=== PATIENT | female | born 1935 | race American Indian/Alaskan Native ===

== ENCOUNTER 2019-05-13 13:32 | Emergency (ER) | payer MEDICARE ==
--- NOTE | 2019-05-13 13:52 | Event Note ---
ED Screening Note ED Screening Note: r side face pain. ear pain elderly frail This initial assessment/diagnostic orders/clinical plan/treatment(s) is/are subject to change based on patients health status, clinical progression and re- assessment by fellow clinical providers in the ED. Further treatment and workup at subsequent clinical providers discretion. Patient/guardian urged not to elope from the ED as their condition may be serious if not clinically assessed and managed. Initial orders include:
[2019-05-13 15:11] LABS: Hematocrit 34.4 % (30.3-42.9); Hemoglobin 11.3 gm/dl (10.1-14.3); Mean Corpuscular HGB Conc 33 % (30-34); Mean Corpuscular Volume 87 fl (79-97); Platelet Count 227 K/mm3 (140-440); Red Blood Count 3.97 M/mm3 (3.65-5.03); Red Cell Distribution Width 15.1 % (13.2-15.2)
[2019-05-13 15:36] LABS: Alanine Aminotransferase 8 units/L (7-56); Albumin 3.6 g/dL (3.9-5); BUN/Creatinine Ratio 20; Blood Urea Nitrogen 12 mg/dL (7-17); Calcium 9.1 mg/dL (8.4-10.2); Hemolysis Index 4
[2019-05-13] MEDS ORDERED: TYLENOL #3 PO ONE (16:39)
[2019-05-13] MEDS ORDERED: TRIMOX PO ONE (16:39)
--- NOTE | 2019-05-13 16:40 | Emergency Department Report ---
HPI - General Chief Complaint: Earache Time Seen by Provider: 05/13/19 13:52 - HPI HPI: 84-year-old female presents complaining of left ear pain and drainage from the ear 2-3 days. Patient denies any foreign object in the ear or trauma to the ears. She denies headache, blurred vision, ED Past Medical Hx - Past Medical History Previous Medical History?: Yes Hx Hypertension: Yes Additional medical history: Brain aneurysm - Surgical History Past Surgical History?: Yes Additional Surgical History: hysterectomy - Medications Home Medications: Home Medications Medication Instructions Recorded Confirmed Last Taken Type Amoxicillin [Amoxicillin TAB] 875 mg PO BID #14 tablet 05/13/19 Unknown Rx Naproxen [Naprosyn] 500 mg PO BID #20 tablet 05/13/19 Unknown Rx Ofloxacin 0.3% [Floxin 0.3% Otic] 1 - 2 drops OT BID #1 bottle 05/13/19 Unknown Rx ED Review of Systems ROS: Stated complaint: LT FACIAL SWELLING Other details as noted in HPI Comment: All other systems reviewed and negative Constitutional: denies: chills, fever Eyes: denies: eye pain, eye discharge, vision change ENT: ear pain (left ear). denies: throat pain, hearing loss Respiratory: denies: cough, shortness of breath, wheezing Cardiovascular: denies: chest pain, palpitations Endocrine: no symptoms reported Gastrointestinal: denies: abdominal pain, nausea, diarrhea Genitourinary: denies: urgency, dysuria, discharge Musculoskeletal: denies: back pain, joint swelling, arthralgia Skin: denies: rash, lesions Neurological: denies: headache, weakness, paresthesias Psychiatric: denies: anxiety, depression Hematological/Lymphatic: denies: easy bleeding, easy bruising Physical Exam - Physical Exam Physical Exam: GENERAL: Alert and oriented x3, no apparent distress, Normal Gait, atraumatic. HEAD: Head is normocephalic and a-traumatic. EARS: symetrical, atraumatic, left ear tender to palpation, left ear canal has moderate greenish thick discharge, tympanic membrance mildly inflamed. gross auditory nml bilaterally. NOSE: Nose symetrical, Nontender,Nares appeared normal. MOUTH:Mouth is well hydrated and without lesions. Tonsils nonerythematous or swollen, Uvula midline, Tongue not elevated. Mucous membranes are moist. Posterior pharynx clear, no exudate or lesions. Patent airways. NECK: Supple. Non edematous, No carotid bruits. No lymphadenopathy or thyromegaly. No C-spine tenderness NEUROLOGIC: The patient is cooperative with no focal neurologic deficits. SKIN: Warm and dry, No lesions, No ulceration or induration present. ED Medical Decision Making - Lab Data Result diagrams: 05/13/19 14:58 05/13/19 14:58 - Medical Decision Making A 84-year-old female presents with otitis externa/otitis media of the left ear. Patient received amoxicillin and pain medication and ED. Discussed the patient should be going home on oral and otic drops for the ears. Vital signs are normal patient understands all instructions she is in no acute distress. Patient was present with her 2 daughters who understands instructions as were given. Discussed to follow up with her primary care physician Critical care attestation.: If time is entered above; I have spent that time in minutes in the direct care of this critically ill patient, excluding procedure time. ED Disposition Clinical Impression: Otitis externa, Otitis media of left ear Disposition: - TO HOME OR SELFCARE Is pt being admited?: No Does the pt Need Aspirin: No Condition: Stable Instructions: Otitis Externa (ED), Otitis Media (ED) Additional Instructions: Make sure to follow up with the primary care physician as discussed. Take all your medications as you've been prescribed. If you have any worsening symptoms or develop new symptoms please return to ED immediately. Prescriptions: Amoxicillin [Amoxicillin TAB] 875 mg PO BID #14 tablet Ofloxacin 0.3% [Floxin 0.3% Otic] 1 - 2 drops OT BID #1 bottle Naproxen [Naprosyn] 500 mg PO BID #20 tablet Referrals: STEVAN FERNANDEZ MD [Primary Care Provider] - 3-5 Days [facility] [Provider Group] - 3-5 Days Forms: Accompanied Note, Work/School Release Form(ED) Time of Disposition: 17:20
[2019-05-13 16:47] VITALS: BP 147/55
== END 2019-05-13 17:38 | disposition home or self-care (01) ==
LOC: ED 13:32
DX: H60.92 Unspecified otitis externa, left ear (principal); H66.92 Otitis media, unspecified, left ear; I10 Essential (primary) hypertension; Z90.710 Acquired absence of both cervix and uterus; Z79.899 Other long term (current) drug therapy
CPT/HCPCS: 36415; 80053; 85027; 99283